=== PATIENT | female | born 1995 | race Caucasian/White ===

== ENCOUNTER → 2023-10-05 12:13 | Outpatient (REF) | payer OTHER, SELFPAY | LOC: PAVMRI 12:13 | PROVIDERS: ATTENDING PHYSICIAN Physician Assistant Medical; FAMILY PHYSICIAN Nurse Practitioner | DX: G44.52 New daily persistent headache (NDPH) (principal); H53.8 Other visual disturbances | CPT/HCPCS: 70553; A9575 ==